=== PATIENT | female | born 1980 | race Two or more races ===

== ENCOUNTER 2019-09-27 12:17 | Emergency (ER) | payer OTHER ==
[2019-09-27] MEDS ORDERED: Sodium Chloride 0.9% 10 ML Syringe FLUSH PRN (12:31)
--- NOTE | 2019-09-27 12:59 | EDM.PDOC ---
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 Patient notes that her last menstrual period was August 11, she is a G1, P0 at this time. Patient did have a ultrasound done on Saturday, as she was having some left groin discomfort, and the ultrasound was done to rule out an ectopic . 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 They were unable to get a heartbeat at that visit. Patient complains of continued pain into her left groin, also with vaginal bleeding that started last night, and has continued today. Patient notes that this is present only when she wipes when she goes to the bathroom, she did wear a pad and there is been nothing present on the pad. Her OB is Dr. Saenz. Patient states that she feels generally bloated, and is having pain on her left lower quadrant. She denies any urinary issues like dysuria or frequency urgency. She notes that her last bowel movement was yesterday, and she does not feel overly full. She also denies any other sick-like symptoms, no fever no chills, no chest pain no shortness of breath. Patient did not take anything at home for the pain. 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 Denies: Constipation, Diarrhea, Nausea, Vomiting : Reports: Other (light vaginal bleeding). Denies: Dysuria, Flank Pain, Frequency, Urgency Musculoskeletal: Reports: Back Pain (Left lower back pain) ED EXAM - Physical Exam Exam: See Below Exam Limited By: No Limitations General Appearance: Alert, WD/WN, No Apparent Distress Respiratory/Chest: No Respiratory Distress, Lungs Clear, Normal Breath Sounds, No Accessory Muscle Use, Chest Non-Tender Cardiovascular: Normal Peripheral Pulses, Regular Rate, Rhythm, No Murmur GI/Abdominal Exam: Normal Bowel Sounds, Soft, Non-Tender, No Distention, No Mass (Female) Exam: Normal Bimanual Exam, Normal External Exam, Normal Speculum Exam, Vaginal Bleeding (scant amount of red tinged fluid). No: Cervical Dilatation, Cervical Discharge, Cervix Motion Tenderness, Tissue Present in Cervix/Vagina Heart Tones: Not [place] Movement: Not Appreciated Extremities: Normal Inspection, Normal Capillary Refill Neurological: Alert, Oriented, Normal Cognition, No Motor/Sensory Deficits Psychiatric: Normal Affect, Normal Mood Skin Exam: Warm, Dry, Intact, Normal Color, No Rash Course - Vital Signs Last Recorded V/S: Last Vital Signs Temp 98.3 F 09/27/19 12:36 Pulse 115 H 09/27/19 12:36 Resp 20 09/27/19 12:36 BP 115/78 09/27/19 12:36 Pulse Ox 100 09/27/19 12:36 - Orders/Labs/Meds Orders: Active Orders 24 hr Category Date Time Status Peripheral IV Care [RC] . DIRECTED Care 09/27/19 12:32 Inactive PATIENT RETYPE [BBK] Routine Lab 09/27/19 13:56 Ordered Peripheral IV Insertion Adult [OM.PC] Stat Oth 09/27/19 12:32 Ordered Labs: Laboratory Tests 09/27/19 09/27/19 09/27/19 Range/Units 13:30 13:30 13:30 WBC 9.10 (3.98-10.04) K/mm3 RBC 4.53 (3.98-5.22) M/mm3 Hgb 11.8 (11.2-15.7) gm/dl Hct 36.9 (34.1-44.9) % MCV 81.5 (79.4-94.8) fl MCH 26.0 (25.6-32.2) pg MCHC 32.0 L (32.2-35.5) g/dl RDW Std Deviation 42.0 (36.4-46.3) fL Plt Count 342 (182-369) K/mm3 MPV 9.5 (9.4-12.3) fl Neut % (Auto) 63.1 (34.0-71.1) % Lymph % (Auto) 28.8 (19.3-51.7) % Ralls % (Auto) 7.1 (4.7-12.5) % Eos % (Auto) 0.7 (0.7-5.8) Baso % (Auto) 0.2 (0.1-1.2) % Neut # (Auto) 5.74 (1.56-6.13) K/mm3 Lymph # (Auto) 2.62 (1.18-3.74) K/mm3 Ralls # (Auto) 0.65 H (0.24-0.36) K/mm3 Eos # (Auto) 0.06 (0.04-0.36) K/mm3 Baso # (Auto) 0.02 (0.01-0.08) K/mm3 HCG, Quant 60914.0 mIU/mL Blood Type A POSITIVE Meds: Medications Discontinued Medications Generic Name Dose Route Start Last Admin Trade Name Freq PRN Reason Stop Dose Admin Sodium Chloride 10 ml 09/27/19 12:31 Saline Flush FLUSH ASDIRECTED PRN Keep Vein Open - Re-Assessments/Exams Free Text/Narrative Re-Assessment/Exam: 09/27/19 13:42 Patient presents to the ED for evaluation of vaginal bleeding and . Will order a ultrasound for evaluation of the , hCG level, CBC and blood type, hCG will be compared to lab value 2 days ago to make sure that we have doubled at least. 09/27/19 14:27 hCG is still pending but all other labs are unremarkable at this time. Patient' s blood type is A+. Ultrasound is also done and demonstrates a intrauterine , with a gestational age of 6 weeks 1 day, heart rate is around 91 bpm. There is a large uterine fibroid noted at 10.8 x 8.1 x 8.1 cm. There was no obvious etiology for the patient's bleeding identified today, as there is no subchorionic hemorrhage. Still waiting on the hCG, however. 09/27/19 14:50 hCG has resulted and is 18,911, on 09/25/2019 it was 18,422. I did call her OB/ BOOK PACKER, Dr. Saenz even though he is not consultants intern to make him aware of what was going on. He states that she should be given reassurance, and have her call the clinic at 8 AM tomorrow and she will be started on progesterone suppositories. I will relay this information to the patient, and have her follow-up with Dr. Saenz tomorrow. Departure - Departure Time of Disposition: 14:51 Disposition: Home, Self-Care 01 Condition: Fair Clinical Impression: Vaginal bleeding affecting early , Uterine fibroid in - Discharge Information *PRESCRIPTION DRUG MONITORING PROGRAM REVIEWED*: No *COPY OF PRESCRIPTION DRUG MONITORING REPORT IN PATIENT MARTHA: No Instructions: Uterine Fibroids, [id number], Vaginal Bleeding During , First Trimester, [id number] Referrals: Segun Saenz MD [Primary Care Provider] - Forms: ED Department Discharge Additional Instructions: You were evaluated in the ER today regarding your abdominal pain/vaginal bleeding in . You did have some labs drawn, and these were within normal limits, your hCG level was 18,911 , your blood type is A+. Your ultrasound demonstrated an intrauterine gestation with a heart rate of 91 bpm. The fetus measured at around 6 weeks 1 day. Again you did have a large uterine fibroid, that measured 10.8 x 8.1 x 8.1 cm. Recommend that you do not lift anything heavier than a gallon of milk (5 lbs), do not engage in sexual activities, try to get as much pelvic rest as possible for the next few days. Please try not to exert yourself, rest and relax, and take it easy. If you are bleeding through more than 1-2 maxi pads every couple hours, this would be cause for concern to return to the ER for immediate management. I did discuss the findings with your MOVIE EDITOR, Dr. Saenz, and he would like you to call his clinic tomorrow morning at 8 AM, so that he can start you on progesterone suppositories for continuation of your . Please return to the ED at any time if your symptoms change or worsen. Sepsis Event Note - Evaluation Sepsis Screening Result: No Definite Risk - Focused Exam Vital Signs: Vital Signs Temp Pulse Resp BP Pulse Ox 09/27/19 12:36 98.3 F 115 H 20 115/78 100 Date Exam was Performed: 09/27/19 Time Exam was Performed: 14:49 - My Orders Last 24 Hours: My Active Orders 09/27/19 12:32 Peripheral IV Care [RC] . DIRECTED Peripheral IV Insertion Adult [OM.PC] Stat 09/27/19 13:56 PATIENT RETYPE [BBK] Routine - Assessment/Plan Last 24 Hours: My Active Orders 09/27/19 12:32 Peripheral IV Care [RC] . DIRECTED Peripheral IV Insertion Adult [OM.PC] Stat 09/27/19 13:56 PATIENT RETYPE [BBK] Routine
--- NOTE | 2019-09-27 13:43 | US ---
1st trimester obstetrical ultrasound: Multiple real-time images were obtained transvaginally and transabdominally. Dates: LMP: LMP given as 08/11/19, ALBERTO 05/17/20, gestational age 6 weeks 5 days Current ultrasound: 05/21/20, gestational age 6 weeks 1 day Single intrauterine gestation is seen. Small pole is noted. Amniotic fluid volume is felt to be within normal limits. No subchorionic hemorrhage is identified. Large uterine fibroid is seen measuring 10.8 x 8.1 x 8.1 cm. Maternal ovaries are felt to be within normal limits. Measurements: Oval-rump length: 0.42 cm - 6 weeks 1 day Heart rate: 91 bpm Impression: 1. Single intrauterine gestation. Dates as noted above. 2. Large uterine fibroid as noted above. 3. Nothing is seen to indicate an etiology for the patient's bleeding. Diagnostic code #3 This report was dictated in [place] Standard Time
== END 2019-09-27 15:03 | disposition home or self-care (01) ==
LOC: JD.ED 12:17
DX: O20.9 Hemorrhage in early pregnancy, unspecified (principal); O34.11 Maternal care for benign tumor of corpus uteri, first trimester; D25.9 Leiomyoma of uterus, unspecified; O99.331 Smoking (tobacco) complicating pregnancy, first trimester; F17.210 Nicotine dependence, cigarettes, uncomplicated; Z88.2 Allergy status to sulfonamides; Z3A.01 Less than 8 weeks gestation of pregnancy
CPT/HCPCS: 36415; 76817; 76817-26; 84702; 85025; 86900; 86901; 99283; 99284-25

== ENCOUNTER 2019-10-11 22:21 | Emergency (ER) | payer OTHER ==
[2019-10-11] MEDS ORDERED: Dextrose 5%-0.9% NaCl 1,000 ML IV SCH (23:00)
--- NOTE | 2019-10-11 23:35 | EDM.PDOC ---
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 Patient has been spotting for the last 2-1/2 weeks. She is also been experiencing left lower inguinal groin pain. She did have an ultrasound performed on September 25 due to the left lower quadrant abdominal pain to rule out an ectopic and no ectopic was identified. A small internal sac was noted in true uterine. Subsequently she developed spotting and presented to the ED for evaluation on September 27. Repeat ultrasound showed a small pole with a single intrauterine gestation with no subchorionic hemorrhage identified. There was a large uterine fibroid identified measuring 10.8 x 8.1 x 8 .1 m felt to be causing some of her pain. The fetus was identified by crown-rump length to be 6 weeks and 1 day. Her menstrual. Was listed as 11 August and EDC has been set at 17 May 2020. Be based on her dates. Ultrasound would have suggested a due date of May 20. She per reports she went to bed and at about 5 hrs. awoke to a gush of fluid per vagina and appreciated a large maroon-colored clot. Since that time she has been bleeding bright red blood per vagina fairly heavily since. She believes she has soaked 1 pad. Has a vague pulling sensation in her central suprapubic area but no terrible cramps in her abdomen or back. Patient's progesterone level was felt to be low and she is on progesterone suppository which he uses nightly. Her flexboard operator is Dr. Saenz Onset: Today Onset Date: 10/11/19 Onset Time: 21:45 (With a feeling of fluid running between her legs which proved to be blood. When she went to the washroom and there was a large clot that was expelled per vagina. She states this is the most bleeding she is experienced in the ) Duration: Hour(s):, Constant Location: Reports: Other (Bright red bleeding per vagina in ) Quality: Reports: Other (Pulling sensation ) Severity: Mild (prepubic abdomen.) Improves with: Reports: None Worsens with: Reports: None Context: Reports: Other (Taiwo is occurrence). 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 Denies: Fever, Chills HEENT: Reports: No Symptoms Respiratory: Reports: No Symptoms Cardiovascular: Reports: No Symptoms Endocrine: Reports: Fatigue GI/Abdominal: Reports: Abdominal Pain : Reports: Frequency, Other (Heavy bleeding per vagina with 1 large clot the size of a silver dollar past about 2145 hrs. tonight.) Musculoskeletal: Reports: No Symptoms Skin: Reports: No Symptoms Neurological: Reports: No Symptoms Psychiatric: Reports: Anxiety Hematologic/Lymphatic: Reports: No Symptoms Immunologic: Reports: No Symptoms ED EXAM - Physical Exam Exam: See Below Exam Limited By: No Limitations General Appearance: Alert, WD/WN, Anxious, Other (Appropriately anxious. Vital signs show temperature 36.7 with a heart rate of 88 in sinus respiratory is 18 BP was 129/85 with O2 sats of 100% on room air) Eye Exam: Bilateral Eye: Normal Inspection Throat/Mouth: Normal Inspection, Normal Lips, Normal Oropharynx Neck: Normal Inspection, Supple, Non-Tender, Full Range of Motion. No: Lymphadenopathy (L), Lymphadenopathy (R) Respiratory/Chest: No Respiratory Distress, Lungs Clear, Normal Breath Sounds, No Accessory Muscle Use Cardiovascular: Normal Peripheral Pulses, Regular Rate, Rhythm, No Edema, No Gallop, No JVD, No Murmur, No Rub GI/Abdominal Exam: Normal Bowel Sounds, Soft, Non-Tender, No Organomegaly, No Abnormal Bruit, No Mass, Pelvis Stable, Other (No gravid uterus is palpable.) (Female) Exam: Other (Cervix is high and anterior. Uterus is retroverted. Cervix appears to be closed but was difficult to reach. The uterus appears to be 8 weeks in size.) Heart Tones: Not [place] Movement: Not Appreciated Back Exam: Normal Inspection, Full Range of Motion. No: CVA Tenderness (L), CVA Tenderness (R) Extremities: Normal Inspection, Normal Range of Motion, Non-Tender Neurological: Alert, Oriented, CN II-XII Intact, Normal Cognition Psychiatric: Normal Affect, Anxious Skin Exam: Warm, Dry, Intact, Normal Color, No Rash Course - Vital Signs Last Recorded V/S: Last Vital Signs Temp 36.7 C 10/11/19 22:52 Pulse 88 10/11/19 22:52 Resp 18 10/11/19 22:52 BP 129/85 10/11/19 22:52 Pulse Ox 100 10/11/19 22:52 - Orders/Labs/Meds Orders: Active Orders 24 hr Category Date Time Status OB Transvaginal [US] Stat Exams 10/11/19 23:34 Ordered URINALYSIS W/MICROSCOPIC [UA W/MICROSCOPIC] [URIN] Stat Lab 10/12/19 00:24 Ordered Acetaminophen [Tylenol] Med 10/12/19 01:18 Once 975 mg PO NOW ONE Dextrose 5%-0.9% NaCl [Dextrose 5%-Normal Saline] 1,000 Med 10/11/19 23:00 Active ml IV ASDIRECTED Ketorolac [Toradol] Med 10/12/19 01:30 Ordered 30 mg IVPUSH ONETIME Medication Orders Dextrose/Sodium Chloride (Dextrose 5%-Normal Saline) 1,000 mls @ 150 mls/hr IV ASDIRECTED HERMANN Last Admin: 10/11/19 23:04 Dose: 150 mls/hr Labs: Laboratory Tests 10/11/19 10/11/19 Range/Units 23:00 23:00 WBC 10.85 H (3.98-10.04) K/mm3 RBC 4.56 (3.98-5.22) M/mm3 Hgb 12.1 (11.2-15.7) gm/dl Hct 37.2 (34.1-44.9) % MCV 81.6 (79.4-94.8) fl MCH 26.5 (25.6-32.2) pg MCHC 32.5 (32.2-35.5) g/dl RDW Std Deviation 44.1 (36.4-46.3) fL Plt Count 347 (182-369) K/mm3 MPV 9.6 (9.4-12.3) fl Neut % (Auto) 47.2 (34.0-71.1) % Lymph % (Auto) 43.7 (19.3-51.7) % [place] % (Auto) 7.4 (4.7-12.5) % Eos % (Auto) 1.2 (0.7-5.8) Baso % (Auto) 0.3 (0.1-1.2) % Neut # (Auto) 5.13 (1.56-6.13) K/mm3 Lymph # (Auto) 4.74 H (1.18-3.74) K/mm3 [place] # (Auto) 0.80 H (0.24-0.36) K/mm3 Eos # (Auto) 0.13 (0.04-0.36) K/mm3 Baso # (Auto) 0.03 (0.01-0.08) K/mm3 Manual Slide Review Normal smear Sodium 137 (136-145) mEq/L Potassium 3.8 (3.5-5.1) mEq/L Chloride 105 (98-107) mEq/L Carbon Dioxide 22 (21-32) mEq/L Anion Gap 13.8 (5-15) BUN 12 (7-18) mg/dL Creatinine 0.8 (0.55-1.02) mg/dL Est Cr Clr Drug Dosing 98.67 mL/min Estimated GFR (MDRD) > 60 (>60) mL/min BUN/Creatinine Ratio 15.0 (14-18) Glucose 101 (74-106) mg/dL Calcium 9.1 (8.5-10.1) mg/dL Total Bilirubin 0.5 (0.2-1.0) mg/dL AST 17 (15-37) U/L ALT 31 (14-59) U/L Alkaline Phosphatase 61 (46-116) U/L Total Protein 6.6 (6.4-8.2) g/dl Albumin 3.3 L (3.4-5.0) g/dl Globulin 3.3 gm/dL Albumin/Globulin Ratio 1.0 (1-2) HCG, Quant 51506.0 mIU/mL Meds: Medications Generic Name Dose Route Start Last Admin Trade Name Freq PRN Reason Stop Dose Admin Dextrose/Sodium Chloride 1,000 mls @ 150 mls/hr 10/11/19 23:00 10/11/19 23:04 Dextrose 5%-Normal Saline IV 150 mls/hr ASDIRECTED HERMANN Administration Discontinued Medications Generic Name Dose Route Start Last Admin Trade Name Freq PRN Reason Stop Dose Admin Acetaminophen 975 mg 10/12/19 01:07 Tylenol PO 10/12/19 01:08 NOW ONE Ketorolac Tromethamine 30 mg 10/12/19 01:16 Toradol IVPUSH 10/12/19 01:17 ONETIME STA - Radiology Interpretation Free Text/Narrative:: 39-year-old female presents to the ED evaluation of bright red bleeding per vagina with much heavier than what she is experienced for the last 2 weeks. She has been spotting on a daily basis for the last 2 weeks. Last ultrasound was done September 27 which showed a small pole and an early heartbeat. A single intrauterine gestation was evident. Estimated date of was 6 weeks and 1 day. States her last known menstrual period was around 11 August 2019. 1 para 0. Lab work done 2 weeks ago revealed that she is blood type A positive. She will have a quantitative beta hCG done with routine labs. She will have a transvaginal ultrasound to prove viability. - Re-Assessments/Exams Free Text/Narrative Re-Assessment/Exam: 10/12/19 00:33 White blood cell count is 10.85 with a normal differential of 47.2% neutrophils. Hemoglobin is 12.1 with a hematocrit of 37.2. Platelet count is normal at 347,000. Sodium is 137 with a potassium of 3.8. Chloride is 105 with a bicarb of 22. Anion gap is 13.8. BUN is 12 with a creatinine of 0.8. Estimated GFR is 60. Glucose is 101. Calcium is 9.1. Liver function is normal. Total protein is 6.6 with a albumin fraction slightly low at 3.3. Current quantitative beta-hCG is 27,014 .This correlates with a 68-week gestation. Wherever hCG was 18,911 on September 27. 10/12/19 01:18 Trans vaginal ultrasound has been completed. It reveals the crown-rump length to have not changed over the last 2 weeks it is still 6.1 mm. There is no heartbeat at this time indicating that the has failed. And and were advised of this. Of note blood type is A positive and she does not need RhoGam. He was advised that she is going to have a very heavy period for the next 3 days. She is to return to the ED or Dr. Saenz's office if she is bleeding heavy enough to soak a pad per hour for 2 consecutive hours. She has a headache at present I am going to give her 975 mg of Tylenol p.o. and Toradol 30 mg IV. Going to send her home with Percocet tabs x2 of the 5/325 mg strength to be taken if needed for further relief if pain not controlled by Motrin alone. To follow-up with Dr. Saenz in a week and in 3 weeks time for beta-hCG assessments. Discussed with her whether or not a decision will have to be made about myomectomy as to whether or not Dr. Saenz feels this is contributing to loss. Departure - Departure Time of Disposition: 01:20 Disposition: Home, Self-Care 01 Condition: Fair Clinical Impression: Incomplete miscarriage with blood clot - Discharge Information *PRESCRIPTION DRUG MONITORING PROGRAM REVIEWED*: Not Applicable *COPY OF PRESCRIPTION DRUG MONITORING REPORT IN PATIENT MARTHA: Not Applicable Prescriptions: oxyCODONE HCl/Acetaminophen [Percocet 5-325 mg Tablet] 1 - 2 each PO Q4H PRN # 10 tablet PRN Reason: pain relief. Referrals: Segun Saenz MD [Primary Care Provider] - Forms: ED Department Discharge Additional Instructions: Evaluation in the emergency room tonight in regards to much heavier bleeding per vagina than what you have experienced in the past few weeks during first trimester of . Previous ultrasound done on September 27 revealed a gestational sac with a crown-rump length of 6.1 mm and a heartbeat. Fortunately today's ultrasound reveals that there is no heartbeat and the crown-rump length has not changed since last ultrasound indicating demise or failure. The cause of failure is unclear but often is genetic in cause. This means mother nature felt that there was something terribly wrong with the development of the fetus and decided to growth and let a miscarriage occur. Your case there is a compounding factor with a very large leiomyoma which is a muscle tumor of the uterus that may be a factor in causing miscarriage. He will have to discuss this further with Dr. Saenz. At present you were likely to experience a much heavier period than normal. This will go on for about 5 to 6 days. You would need to return to medical care if you soak a pad per hour for 2 consecutive hours. As this indicates fairly heavy bleeding and possible need for D&C. Is a surgical procedure to remove the products of conception from the inside of the uterus. Suggest follow -up with Dr. Saenz in 1 week's time and in 3 weeks time for beta-hCG assessment. Use Motrin 600 mg every 6 hours as needed to reduce cramping and pain. If not controlled with Motrin alone may use Percocet tablets 1 or 2 5/ 325 mg strength tabs every 4-6 hours for pain relief as well. Sepsis Event Note - Evaluation Sepsis Screening Result: No Definite Risk - Focused Exam Vital Signs: Vital Signs Temp Pulse Resp BP Pulse Ox 10/11/19 22:52 36.7 C 88 18 129/85 100 Date Exam was Performed: 10/12/19 Time Exam was Performed: 01:18 - My Orders Last 24 Hours: My Active Orders 10/11/19 23:00 Dextrose 5%-0.9% NaCl [Dextrose 5%-Normal Saline] 1,000 ml IV ASDIRECTED 10/11/19 23:34 OB Transvaginal [US] Stat 10/12/19 00:24 URINALYSIS W/MICROSCOPIC [UA W/MICROSCOPIC] [URIN] Stat 10/12/19 01:18 Acetaminophen [Tylenol] 975 mg PO NOW ONE 10/12/19 01:30 Ketorolac [Toradol] 30 mg IVPUSH ONETIME - Assessment/Plan Last 24 Hours: My Active Orders 02/23/20 23:00 Dextrose 5%-0.9% NaCl [Dextrose 5%-Normal Saline] 1,000 ml IV ASDIRECTED 10/11/19 23:34 OB Transvaginal [US] Stat 10/12/19 00:24 URINALYSIS W/MICROSCOPIC [UA W/MICROSCOPIC] [URIN] Stat 10/12/19 01:18 Acetaminophen [Tylenol] 975 mg PO NOW ONE 10/12/19 01:30 Ketorolac [Toradol] 30 mg IVPUSH ONETIME
[2019-10-12] MEDS ORDERED: Acetaminophen 325 MG Tab PO ONE ×2 (01:07→01:18)
[2019-10-12] MEDS ORDERED: Ketorolac 30 MG/ML SDV IVPUSH STA (01:16)
[2019-10-12] MEDS ORDERED: Acetaminophen/oxyCODONE 325-5 MG Tab PO ONE (01:21)
[2019-10-12] MEDS ORDERED: Ketorolac 30 MG/ML SDV IVPUSH SCH (01:30)
--- NOTE | 2019-10-12 06:55 | US ---
First trimester obstetrical ultrasound: Multiple real-time images were obtained transabdominally and transvaginally. Comparison: Prior first trimester obstetrical ultrasound 09/27/19. Dates: LMP: LMP given as 08/11/19, ALBERTO 05/17/20, gestational age 8 weeks 6 days Current ultrasound: ALBERTO 06/05/20, gestational age 6 weeks 1 day Single intrauterine gestation is seen. pole is seen. No heart activity seen at this time. Amniotic fluid volume is normal. Simple cyst is noted within the maternal left ovary measuring 3.5 cm most likely representing corpus luteum cyst. Right ovary is unremarkable. Small subchorionic hemorrhage is noted. Measurements: Trainer-rump length: 0.4 cm - 6 weeks 1 day Impression: 1. Single intrauterine gestation. Dates as noted above. 2. No heart activity is seen. This may relate to early gestational age. Follow-up study could be considered in 11 days to further evaluate. 3. Small subchorionic hemorrhage. 4. 3.5 cm corpus luteum cyst within the maternal left ovary. Diagnostic code #3 This report was dictated in [place] Standard Time I agree with preliminary report from [facility], finalized on 10/12/19, 2:58 AM Central Time
== END 2019-10-12 01:30 | disposition home or self-care (01) ==
LOC: JD.ED 22:21
DX: O03.4 Incomplete spontaneous abortion without complication (principal); Z88.2 Allergy status to sulfonamides
CPT/HCPCS: 36415; 76817; 80053; 84702; 85025; 96361; 96374; 99284; A9270; J1885; J7042; 99283

== ENCOUNTER 2019-10-15 10:27 | Emergency (ER) | payer OTHER ==
[2019-10-15] MEDS ORDERED: Sodium Chloride 0.9% 10 ML Syringe FLUSH PRN (11:26)
[2019-10-15] MEDS ORDERED: Ondansetron 4 MG/2 ML SDV IVPUSH ONE (11:43)
[2019-10-15] MEDS ORDERED: HYDROmorphone 0.5 MG/0.5 ML Syringe IVPUSH ONE (11:43)
--- NOTE | 2019-10-15 11:55 | EDM.PDOC ---
ED HPI GENERAL MEDICAL PROBLEM - General Source of Information: Reports: Patient History Limitations: Reports: No Limitations Left Lower Abdominal Pain Score (Numeric/FACES): 7 <Elba Romero - Last Filed: 10/15/19 11:43> <Samira Allan - Last Filed: 10/15/19 23:28> - General Chief Complaint: HALF SOLE FITTER Problem Stated Complaint: HEAVY BLEEDING Time Seen by Provider: 10/15/19 11:15 - History of Present Illness INITIAL COMMENTS - FREE TEXT/NARRATIVE: Patient is a pleasant 39-year-old female who presents to the ED with complaints of heavy bleeding that started this morning at 0230. Patient was evaluated in the ED on 10/11/2019 and was told she was having a miscarriage and was provided a prescription for Oxycodone and was provided instructions on what to expect. She states the amount of bleeding was following what Dr. Hardy had told her on Saturday until this morning when she started having stronger abdominal cramping and passing clots. On Saturday she was having to change her pad every four hours and was just having bright red blood, no clots. Saturday she states she really didn't have much bleeding. Saturday she had to change her pad every four hours, but again was not passing clots, just having bright red blood. Then today, , at 0230 she woke up from pain and noticed she was passing quarter size dark maroon clots and bright red blood. She took one of the Oxycodone tablets and went back to sleep. When she woke up at 0830 she started having more cramping in the left lower quadrant and is still passing clots. She has had to change her pad every 90 minutes since she woke up. She is no longer having back pain. She states that with the left lower quadrant cramping, "it feels like there is a band inside that keeps getting pulled." She denies chest pain, shortness of breath, and fever/chills. Of note, her OB is Dr. Saenz. She has had one appointment with him during the , which was on 09/24/2019. At the appointment he started her on Progesterone. Two days after she started having bleeding and has been having issues with bleeding since. This is her third evaluation in the ED, the first being on 09/27/2019, second on 10/11/2019, and today. 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 Denies: Fever, Chills, Weakness Respiratory: Reports: No Symptoms. Denies: Shortness of Breath Cardiovascular: Reports: No Symptoms. Denies: Chest Pain, Lightheadedness, Syncope GI/Abdominal: Reports: Abdominal Pain (cramping in left lower quadrant). Denies : Diarrhea, Nausea, Vomiting : Reports: Discharge (bright red blood and dark maroon quarter-size clots for the past 9 hours) Musculoskeletal: Reports: No Symptoms. Denies: Back Pain Skin: Reports: No Symptoms. Denies: Pallor, Rash, Erythema Neurological: Reports: No Symptoms. Denies: Dizziness, Headache, Numbness, Syncope, Tingling Psychiatric: Reports: No Symptoms <Elba Romero - Last Filed: 10/15/19 11:43> ED EXAM - Physical Exam Exam: See Below Exam Limited By: No Limitations General Appearance: Alert, WD/WN, No Apparent Distress Respiratory/Chest: No Respiratory Distress, Lungs Clear, Normal Breath Sounds, No Accessory Muscle Use, Chest Non-Tender Cardiovascular: Normal Peripheral Pulses, Regular Rate, Rhythm, No Edema, No Gallop, No Murmur, No Rub GI/Abdominal Exam: Normal Bowel Sounds, Soft, No Organomegaly, No Distention, No Mass, Pelvis Stable, Tender (left lower quadrant) Back Exam: Normal Inspection, Full Range of Motion, NT Extremities: Normal Inspection, Normal Range of Motion, Non-Tender, Normal Capillary Refill, No Pedal Edema Neurological: Alert, Oriented, Normal Cognition, Normal Gait, No Motor/Sensory Deficits Psychiatric: Normal Affect, Normal Mood, Tearful Skin Exam: Warm, Dry, Intact, Normal Color, No Rash <Elba Romero - Last Filed: 10/15/19 11:43> Course <Elba Romero - Last Filed: 10/15/19 11:43> <Samira Allan - Last Filed: 10/15/19 23:28> - Vital Signs Last Recorded V/S: Last Vital Signs Temp 99.2 F 10/15/19 12:33 Pulse 64 10/15/19 13:00 Resp 16 10/15/19 13:00 BP 94/61 10/15/19 13:00 Pulse Ox 96 10/15/19 13:00 - Orders/Labs/Meds Orders: Active Orders 24 hr Category Date Time Status Peripheral IV Care [RC] . DIRECTED Care 10/15/19 11:29 Active Peripheral IV Insertion Adult [OM.PC] Stat Oth 10/15/19 11:27 Ordered Labs: Laboratory Tests 10/15/19 10/15/19 10/15/19 Range/Units 11:45 11:45 11:45 WBC 9.45 (3.98-10.04) K/mm3 RBC 4.64 (3.98-5.22) M/mm3 Hgb 12.2 (11.2-15.7) gm/dl Hct 38.0 (34.1-44.9) % MCV 81.9 (79.4-94.8) fl MCH 26.3 (25.6-32.2) pg MCHC 32.1 L (32.2-35.5) g/dl RDW Std Deviation 44.2 (36.4-46.3) fL Plt Count 312 (182-369) K/mm3 MPV 9.4 (9.4-12.3) fl Neut % (Auto) 59.6 (34.0-71.1) % Lymph % (Auto) 32.1 (19.3-51.7) % Churchill % (Auto) 6.9 (4.7-12.5) % Eos % (Auto) 1.1 (0.7-5.8) Baso % (Auto) 0.2 (0.1-1.2) % Neut # (Auto) 5.64 (1.56-6.13) K/mm3 Lymph # (Auto) 3.03 (1.18-3.74) K/mm3 Churchill # (Auto) 0.65 H (0.24-0.36) K/mm3 Eos # (Auto) 0.10 (0.04-0.36) K/mm3 Baso # (Auto) 0.02 (0.01-0.08) K/mm3 HCG, Quant 23671.0 mIU/mL Blood Type A POSITIVE Gel Antibody Screen Negative Meds: Medications Discontinued Medications Generic Name Dose Route Start Last Admin Trade Name Freq PRN Reason Stop Dose Admin Hydromorphone HCl 0.5 mg 10/15/19 11:43 10/15/19 12:32 Dilaudid IVPUSH 10/15/19 11:44 0.5 mg ONETIME ONE Administration Sodium Chloride 1,000 mls @ 999 mls/hr 10/15/19 13:47 10/15/19 14:30 Normal Saline IV 10/15/19 14:47 999 mls/hr ONETIME ONE Administration Ondansetron HCl 4 mg 10/15/19 11:43 10/15/19 12:30 Zofran IVPUSH 10/15/19 11:44 4 mg ONETIME ONE Administration Sodium Chloride 10 ml 10/15/19 11:26 10/15/19 12:34 Saline Flush FLUSH 10 ml ASDIRECTED PRN Administration Keep Vein Open - Re-Assessments/Exams Free Text/Narrative Re-Assessment/Exam: 10/15/19 11:51 I have read and reviewed the student's HPI and examined the patient and agree with 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 We will repeat the ultrasound today to make sure she has no retained products of conception. And some labs to include CBC, hCG and a type and screen IV will be placed as well. 10/15/19 13:52 Ultrasound is back and demonstrates no intrauterine gestational sac, with a mild amount of debris within the endometrial cavity presumably due to blood clot. This will likely pass on its own, I do believe the patient is through the worst of the miscarriage at this time. I did call Dr. Saenz to make him aware and he also agrees. Review of the patient's blood pressures have revealed that her systolic pressures been in the 90s to low 100s. Patient's not complaining of any dizziness, however due to her vaginal bleeding I will give her a bag of fluids at today's visit before leaving. And the patient will get a work note to have the rest of the weekend off so she may recover. (Samira Allan) Departure <Elba Romero - Last Filed: 10/15/19 11:43> - Departure Time of Disposition: 13:53 Condition: Fair - Discharge Information *PRESCRIPTION DRUG MONITORING PROGRAM REVIEWED*: No *COPY OF PRESCRIPTION DRUG MONITORING REPORT IN PATIENT MARTHA: No <Samira Allan - Last Filed: 10/15/19 23:28> - Departure Disposition: Home, Self-Care 01 Clinical Impression: Complete - Discharge Information Instructions: Miscarriage, [id number] Referrals: Segun Saenz MD [Primary Care Provider] - Forms: ED Department Discharge, ED Return to Work/School Form Additional Instructions: You were evaluated in the ER today regarding your abdominal pain/vaginal bleeding in . You did have some labs drawn, and these were within normal limits. Your ultrasound demonstrated no intrauterine gestational sac, but a mild amount of debris which is likely still blood clot, you should pass this with little to no difficulty. You might have some heavier vaginal bleeding over the next day or 2 while the body is still trying to recuperate itself from the miscarriage. Please try not to exert yourself over the next couple days try to rest/relax, and take it easy. Highly recommend you eat some meals high in iron, like red meats, steak, green leafy vegetables, etc. Please try to keep yourself well- hydrated. If you are bleeding through more than 1-2 maxi pads every couple hours, or have any increasing dizziness or lightheadeness with standing, this would be cause for concern to return to the ER for immediate management. Please return to the ED at any time if your symptoms change or worsen. Sepsis Event Note - Evaluation Sepsis Screening Result: No Definite Risk - Focused Exam Date Exam was Performed: 10/15/19 Time Exam was Performed: 11:43 <Elba Romero - Last Filed: 10/15/19 11:43> - Focused Exam Date Exam was Performed: 10/15/19 Time Exam was Performed: 23:28 <Samira Allan - Last Filed: 10/15/19 23:28> - Focused Exam Vital Signs: Vital Signs Temp Pulse Resp BP Pulse Ox 10/15/19 13:00 64 16 94/61 96 10/15/19 12:33 99.2 F 64 16 106/67 97 - My Orders Last 24 Hours: My Active Orders 10/15/19 11:27 Peripheral IV Insertion Adult [OM.PC] Stat 10/15/19 11:29 Peripheral IV Care [RC] . DIRECTED - Assessment/Plan Last 24 Hours: My Active Orders 10/15/19 11:27 Peripheral IV Insertion Adult [OM.PC] Stat 10/15/19 11:29 Peripheral IV Care [RC] . DIRECTED
--- NOTE | 2019-10-15 13:35 | US ---
First trimester obstetrical ultrasound: Multiple real-time images were obtained transabdominally. Comparison: Previous study of 10/11/19. Findings: No intrauterine gestational sac is seen. Endometrial thickness is about 1.5 cm containing some debris which is presumably due to blood clot. Large fibroid is noted measuring up to 9.9 cm. Right ovary not visualized, left ovary is normal in size. Impression: 1. No intrauterine gestational sac. Mild amount of debris within the endometrial cavity presumably due to blood clot. 2. Large 9.9 cm fibroid. 3. Nonvisualized right ovary. Diagnostic code #3 This report was dictated in [place] Standard Time
[2019-10-15] MEDS ORDERED: Sodium Chloride 0.9% 1,000 ML IV ONE (13:47)
== END 2019-10-15 15:27 | disposition home or self-care (01) ==
LOC: JD.ED 10:27
DX: O03.9 Complete or unspecified spontaneous abortion without complication (principal); Z88.2 Allergy status to sulfonamides
CPT/HCPCS: 36415; 76817; 84702; 85025; 86850; 86900; 86901; 96361; 96374; 96375; 99284; J1170; J2405; J7030; 99283

== ENCOUNTER 2019-12-21 02:54 | Emergency (ER) | payer MEDICAID ==
[2019-12-21] MEDS ORDERED: Sodium Chloride 0.9% 1,000 ML IV SCH (03:15)
--- NOTE | 2019-12-21 03:18 | EDM.PDOC ---
ED HPI GENERAL MEDICAL PROBLEM - General Chief Complaint: Abdominal Pain Stated Complaint: abdominal pain Time Seen by Provider: 12/21/19 03:15 Source of Information: Reports: Patient History Limitations: Reports: No Limitations - History of Present Illness INITIAL COMMENTS - FREE TEXT/NARRATIVE: TRIAGE NOTE -- Pt states on she had a miscarriage then since she has been bleeding. Two weeks ago the bleeding stopped but pt was diagnosed with a fibroid and has been seeing Dr. Saenz for management. Today she states her pelvic pain has become much worse. [ End ] Above-noted. There is been no fever. No nausea or vomiting. Patient has been uncomfortable as noted. Pelvic pain related to a fibroid. To be discussed shortly. There is been no vaginal bleeding. No dysuria. No other symptom of acute medical illness. The patient has had her first recently which ended with spontaneous . She is being managed by gynecology. Large fibroid has been noted. She has not taken any medication or tried any other measure to moderate her symptoms prior to arrival. Only risk factor identified is the presence of the large fibroid. 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 ED EXAM, RENAL/ - Physical Exam Exam: See Below Exam Limited By: No Limitations General Appearance: Alert, WD/WN, No Apparent Distress Eye Exam: Bilateral Eye: EOMI, PERRL Ears: Normal External Exam Nose: Normal Inspection Throat/Mouth: Normal Inspection Head: Atraumatic, Normocephalic Neck: Supple, Non-Tender Respiratory/Chest: No Respiratory Distress, Lungs Clear, Normal Breath Sounds Cardiovascular: Regular Rate, Rhythm GI/Abdominal: Soft, Non-Tender. No: Guarding, Rigid, Rebound, Tender Back Exam: Normal Inspection Extremities: Normal Inspection, Non-Tender Neurological: Alert, Oriented, Normal Cognition, No Motor/Sensory Deficits Psychiatric: Normal Affect, Normal Mood Skin Exam: Warm, Dry Course - Vital Signs Last Recorded V/S: Last Vital Signs Temp 36.4 C 12/21/19 03:01 Pulse 71 12/21/19 03:01 Resp 16 12/21/19 03:01 BP 145/89 H 12/21/19 03:01 Pulse Ox 99 12/21/19 03:01 - Orders/Labs/Meds Orders: Active Orders 24 hr Category Date Time Status Sodium Chloride 0.9% [Normal Saline] 1,000 ml Med 12/21/19 03:15 Active IV ASDIRECTED Medication Orders Sodium Chloride (Normal Saline) 1,000 mls @ 150 mls/hr IV ASDIRECTED HERMANN Last Admin: 12/21/19 03:12 Dose: 150 mls/hr Labs: Laboratory Tests 12/21/19 12/21/19 12/21/19 Range/Units 03:00 03:00 03:00 WBC 9.24 (3.98-10.04) K/mm3 RBC 5.00 (3.98-5.22) M/mm3 Hgb 13.3 (11.2-15.7) gm/dl Hct 40.6 (34.1-44.9) % MCV 81.2 (79.4-94.8) fl MCH 26.6 (25.6-32.2) pg MCHC 32.8 (32.2-35.5) g/dl RDW Std Deviation 42.4 (36.4-46.3) fL Plt Count 329 (182-369) K/mm3 MPV 9.8 (9.4-12.3) fl Neutrophils % (Manual) 36 L (40-60) % Band Neutrophils % 0 (0-10) % Lymphocytes % (Manual) 54 H (20-40) % Atypical Lymphs % 0 % Monocytes % (Manual) 5 (2-10) % Eosinophils % (Manual) 3 (0.7-5.8) % Basophils % (Manual) 2 H (0.1-1.2) Platelet Estimate Adequate RBC Morph Comment Normal PT 10.5 (9.7-12.0) SECONDS INR 0.96 APTT 26 (22-31) SECONDS Sodium 137 (136-145) mEq/L Potassium 3.8 (3.5-5.1) mEq/L Chloride 105 (98-107) mEq/L Carbon Dioxide 24 (21-32) mEq/L Anion Gap 11.8 (5-15) BUN 7 (7-18) mg/dL Creatinine 0.9 (0.55-1.02) mg/dL Est Cr Clr Drug Dosing 87.70 mL/min Estimated GFR (MDRD) > 60 (>60) mL/min BUN/Creatinine Ratio 7.8 L (14-18) Glucose 89 (74-106) mg/dL Calcium 8.8 (8.5-10.1) mg/dL Total Bilirubin 0.9 (0.2-1.0) mg/dL AST 19 (15-37) U/L ALT 26 (14-59) U/L Alkaline Phosphatase 58 (46-116) U/L Total Protein 7.0 (6.4-8.2) g/dl Albumin 3.7 (3.4-5.0) g/dl Globulin 3.3 gm/dL Albumin/Globulin Ratio 1.1 (1-2) Lipase 154 (73-393) U/L Urine Color (Yellow) Urine Appearance (Clear) Urine pH (5.0-8.0) Ur Specific Anderson (1.005-1.030) Urine Protein (Negative) Urine Glucose (UA) (Negative) Urine Ketones (Negative) Urine Occult Blood (Negative) Urine Nitrite (Negative) Urine Bilirubin (Negative) Urine Urobilinogen (0.2-1.0) Ur Leukocyte Esterase (Negative) Urine RBC (0-5) /hpf Urine WBC (0-5) /hpf Ur Squamous Epith Cells (0-5) /hpf Urine Bacteria (FEW) /hpf Urine Mucus (FEW) /hpf Urine HCG, Qual (NEGATIVE) 12/21/19 12/21/19 Range/Units 04:00 04:00 WBC (3.98-10.04) K/mm3 RBC (3.98-5.22) M/mm3 Hgb (11.2-15.7) gm/dl Hct (34.1-44.9) % MCV (79.4-94.8) fl MCH (25.6-32.2) pg MCHC (32.2-35.5) g/dl RDW Std Deviation (36.4-46.3) fL Plt Count (182-369) K/mm3 MPV (9.4-12.3) fl Neutrophils % (Manual) (40-60) % Band Neutrophils % (0-10) % Lymphocytes % (Manual) (20-40) % Atypical Lymphs % % Monocytes % (Manual) (2-10) % Eosinophils % (Manual) (0.7-5.8) % Basophils % (Manual) (0.1-1.2) Platelet Estimate RBC Morph Comment PT (9.7-12.0) SECONDS INR APTT (22-31) SECONDS Sodium (136-145) mEq/L Potassium (3.5-5.1) mEq/L Chloride (98-107) mEq/L Carbon Dioxide (21-32) mEq/L Anion Gap (5-15) BUN (7-18) mg/dL Creatinine (0.55-1.02) mg/dL Est Cr Clr Drug Dosing mL/min Estimated GFR (MDRD) (>60) mL/min BUN/Creatinine Ratio (14-18) Glucose (74-106) mg/dL Calcium (8.5-10.1) mg/dL Total Bilirubin (0.2-1.0) mg/dL AST (15-37) U/L ALT (14-59) U/L Alkaline Phosphatase (46-116) U/L Total Protein (6.4-8.2) g/dl Albumin (3.4-5.0) g/dl Globulin gm/dL Albumin/Globulin Ratio (1-2) Lipase (73-393) U/L Urine Color Yellow (Yellow) Urine Appearance Clear (Clear) Urine pH 6.0 (5.0-8.0) Ur Specific Anderson 1.025 (1.005-1.030) Urine Protein Negative (Negative) Urine Glucose (UA) Negative (Negative) Urine Ketones 2+ H (Negative) Urine Occult Blood Trace-intact H (Negative) Urine Nitrite Negative (Negative) Urine Bilirubin Negative (Negative) Urine Urobilinogen 0.2 (0.2-1.0) Ur Leukocyte Esterase Negative (Negative) Urine RBC 0-5 (0-5) /hpf Urine WBC Not seen (0-5) /hpf Ur Squamous Epith Cells Not seen (0-5) /hpf Urine Bacteria Rare (FEW) /hpf Urine Mucus Few (FEW) /hpf Urine HCG, Qual Positive (NEGATIVE) Meds: Medications Generic Name Dose Route Start Last Admin Trade Name Freq PRN Reason Stop Dose Admin Sodium Chloride 1,000 mls @ 150 mls/hr 12/21/19 03:15 12/21/19 03:12 Normal Saline IV 150 mls/hr ASDIRECTED [facility] Administration - Re-Assessments/Exams Free Text/Narrative Re-Assessment/Exam: 12/21/19 04:37 A work-up was done without any salient abnormal findings. The urine test is positive but patient assures me there is no way this could represent a new since her spontaneous in September. Judging from the serum hCG tests as recently as a few days ago it is not surprising that the urine test is still positive. This was discussed with the patient. Her exam is benign and there is no additional evaluation that can be done in the ER that would benefit the patient. She has access to her computer technical support specialist and needs to give this specialist to call this morning and she agrees to do so. She is obviously having discomfort as a result of her fibroid. It would behoove her to get with her computer technical support specialist and come up with a plan that makes sense for her in this situation. Departure - Departure Time of Disposition: 04:40 Disposition: Home, Self-Care 01 Condition: Good Clinical Impression: Pelvic pain Uterine fibroid Qualifiers: Uterine leiomyoma location: unspecified location Qualified Code(s): D25.9 - Leiomyoma of uterus, unspecified - Discharge Information Referrals: Segun Saenz MD [Primary Care Provider] - Forms: ED Department Discharge Additional Instructions: You have been seen for your pelvic discomfort and pain. This is undoubtedly a result of your large fibroid. On our evaluation in the ER there is nothing more we can do for you today that might be of benefit to you. Please call your computer technical support specialist this morning and arrange to consult with him and come up with a plan that makes sense for you and management of this problem. Do not hesitate to return to the ER for any increased pain nausea vomiting fever or any discomfort that you cannot manage at home. Sepsis Event Note - Evaluation Sepsis Screening Result: No Definite Risk - Focused Exam Vital Signs: Vital Signs Temp Pulse Resp BP Pulse Ox 12/21/19 03:01 36.4 C 71 16 145/89 H 99 Date Exam was Performed: 12/21/19 Time Exam was Performed: 04:36 - My Orders Last 24 Hours: My Active Orders 12/21/19 03:15 Sodium Chloride 0.9% [Normal Saline] 1,000 ml IV ASDIRECTED - Assessment/Plan Last 24 Hours: My Active Orders 12/21/19 03:15 Sodium Chloride 0.9% [Normal Saline] 1,000 ml IV ASDIRECTED
== END 2019-12-21 04:55 | disposition home or self-care (01) ==
LOC: JD.ED 02:54
DX: O34.11 Maternal care for benign tumor of corpus uteri, first trimester (principal); Z88.2 Allergy status to sulfonamides
CPT/HCPCS: 36415; 80053; 81001; 81025; 83690; 84702; 85007; 85027; 85610; 85730; 99284; J7030; 99283

== ENCOUNTER 2019-12-22 07:19 | Day surgery (SDC) | payer MEDICAID, OTHER ==
--- NOTE | 2019-12-22 07:59 | PCM.PREANE ---
Preanesthetic Assessment - Anesthesia/Transfusion/Family Hx Anesthesia History: Prior Anesthesia Without Reaction Type of Anesthesia Reaction: Other (see below) (emotional on wake up) Family History of Anesthesia Reaction: No Transfusion History: No Prior Transfusion(s) Intubation History: Unknown - Review of Systems General: No Symptoms, Fatigue Pulmonary: No Symptoms (Former smoker: just vaping socially. none since August. ) Cardiovascular: No Symptoms Gastrointestinal: No Symptoms (History of GERD. (diet related)), Abdominal Pain , Decreased Appetite, Diarrhea Neurological: No Symptoms Other: Reports: None (History of kidney stones), Easy Bruising - Physical Assessment NPO Status Date: 12/22/19 NPO Status Time: 05:30 Vital Signs: HR: BP: Sat: Temp: Resp: Height: 1.75 m Weight: 99 kg ASA Class: 2 Mental Status: Alert & Oriented x3 Airway Class: Mallampati = 2 Dentition: Reports: Normal Dentition, Caries Thyro-Mental Finger Breadths: 3 Mouth Opening Finger Breadths: 3 ROM/Head Extension: Full Lungs: Clear to Auscultation, Normal Respiratory Effort Cardiovascular: Regular Rate, Regular Rhythm, No Murmurs - Lab Values: HCG: positive/ decreased serum titers. Unable to rule out ectopic . 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 - Past Surgical History HEENT Surgical History: Reports: Tonsillectomy GI Surgical History: Reports: Appendectomy, Cholecystectomy - HOME MEDS Home Medications: Home Meds oxyCODONE HCl/Acetaminophen [Percocet 5-325 mg Tablet] 1 - 2 each PO Q4H PRN # 10 tablet 10/12/19 [Rx] - CURRENT (IN HOUSE) MEDS Current Meds: Current Medications Lactated Ringer's (Ringers, Lactated) 1,000 mls @ 125 mls/hr IV ASDIRECTED HERMANN Stop: 12/23/19 23:00 Lidocaine/Sodium Bicarbonate (Buffered Lidocaine 1% In Ns 8.4%) 0.25 ml IDERM ONETIME PRN PRN Reason: Prior to IV Start Stop: 12/23/19 18:00 Sodium Chloride (Saline Flush) 10 ml FLUSH ASDIRECTED PRN PRN Reason: Keep Vein Open Stop: 12/23/19 18:00
[2019-12-22] MEDS ORDERED: Lidocaine 1%/Sod Bicarbonate in NS 8.4% 1 ML Syringe IDERM PRN (08:14)
[2019-12-22] MEDS: Lactated Ringers 1,000 ML IV SCH ×2 (08:21→10:39)
[2019-12-22] MEDS ORDERED: Bupivacaine 0.5% 30 ML SDV ONE (08:35)
[2019-12-22] MEDS ORDERED: Midazolam 1 MG/ML 2 ML SDV ONE (08:35)
[2019-12-22] MEDS ORDERED: fentaNYL 100 MCG/2 ML SDV ONE (08:36)
[2019-12-22] MEDS ORDERED: Propofol 200 MG/20 ML SDV ONE (08:36)
[2019-12-22] MEDS ORDERED: Lidocaine 1% 4 ML ONE (08:44)
[2019-12-22] MEDS ORDERED: Succinylcholine/Sod PF 100 MG/5 ML SYRINGE IV ONE (08:48)
[2019-12-22] MEDS ORDERED: ceFAZolin 1 GM Vial ONE (09:01)
[2019-12-22] MEDS ORDERED: Rocuronium 50 MG/5 ML Vial ONE (09:14)
[2019-12-22] MEDS ORDERED: Dexamethasone 4 MG/ML 5 ML MDV ONE (09:17)
[2019-12-22] MEDS ORDERED: Ondansetron 4 MG/2 ML SDV ONE (09:18)
[2019-12-22] MEDS ORDERED: Lactated Ringers 1,000 ML ONE (09:18)
[2019-12-22] MEDS ORDERED: HYDROmorphone 0.5 MG/0.5 ML Syringe IVPUSH PRN (09:38)
[2019-12-22] MEDS ORDERED: fentaNYL 100 MCG/2 ML SDV IVPUSH PRN (09:38)
[2019-12-22] MEDS ORDERED: HYDROmorphone 0.5 MG/0.5 ML Syringe ONE ×2 (09:43→09:55)
[2019-12-22] MEDS ORDERED: Ondansetron 4 MG/2 ML SDV IVPUSH PRN (10:00)
[2019-12-22] MEDS ORDERED: Acetaminophen/oxyCODONE 325-5 MG Tab PO PRN (10:00)
[2019-12-22] MEDS ORDERED: Ketorolac 30 MG/ML SDV IVPUSH SCH (10:00)
--- NOTE | 2019-12-22 10:15 | PCM.OPNOTE ---
- General Post-Op/Procedure Note Date of Surgery/Procedure: 12/22/19 Operative Procedure(s): Dilation and suction curettage, diagnostic laparoscopy Findings: Uterus sounded to 9 cm. Small amount of tissue was noted in the endometrial canal. Possibly consistent with products of conception. On laparoscopy patient is noted to have a 9-1/2 cm fibroid which occupied much of the pelvis. Both fallopian tubes and ovaries were otherwise unremarkable. Posterior cul-de-sac unremarkable. Appendix not visualized. Liver edge is clear and unremarkable. Minimal amount of blood in the posterior cul-de-sac most probably secondary to the operative procedure itself. Pre Op Diagnosis: 1. Left lower quadrant pain. 2. Abnormal reduction in quantitative beta-hCG. 3. Thickened endometrium Post-Op Diagnosis: Same with probable retained products of conception. Anesthesia Technique: General ET Tube Other Anesthesia Type: Marcaine 0.5%�approximately 10 mL total Primary Surgeon: Segun Saenz Secondary Surgeon: Zen Randall Anesthesia Provider: Robert Aranda Commercial Reporter: Richar Loyola Reason Commercial Reporter Was Necessary: Retraction, assistance, patient safety, quality of care. Pathology: Endometrial curettings consistent with products of conception. Fluid Replacement, Intraop: 1,800 Output, Urine Amount: 150 EBL in mLs: 10 Drain/Tube Comments:: Indwelling bladder catheter during surgery only. Complications: None Condition: Good Free Text/Narrative:: Surgery duration: 20 minutes Procedure: Lora was taken to the operating room and placed in supine position on the operating table. She was administered 2 g of Ancef preoperatively for infection prophylaxis and had sequential compression stockings in place for DVT prophylaxis. She is administered general endotracheal anesthesia. After adequate anesthesia patient was placed in the dorsal lithotomy position, prepped and draped in usual fashion. A indwelling bladder catheter was then placed. D&C was performed. The cervix was visualized using weighted speculum and a retractor. Is grasped anteriorly with single- toothed tenaculum. Uterus was sounded to 9 cm. The cervix was then dilated to accommodate a 7 mm suction curet. Suction curet was introduced and a small amount of tissue was removed. Sharp curet was then introduced and minimal tissue was removed. The suction curet was then reintroduced to remove remaining blood. At this time the patient was returned to a supine position and laparoscopy was performed. Infraumbilical incision site was infiltrated with Marcaine 0.5% approximately 5 mL. Incision was made and a pneumoperitoneum was established using a verres needle and approximately 4 L of CO2. A 5 mm scope trocar and port was introduced.. 2 lateral laparoscopic port sites were also developed for 5 mm trochars. The pelvis was then visualized, a massive fibroid was noted which occupied most of the pelvis. Anterior cul-de-sac and posterior cul-de-sac were free of any lesions. With some difficulty both fallopian tubes were visualized and found to be within normal limits as were both ovaries. There was no evidence of ectopic . Small amount of blood present was felt to be due to the laparoscopy procedure itself. The appendix was not visualized as it appeared to be retrocecal. No inflammation was noted. Liver edge was unremarkable. Upon confirmation that there was no tubal the procedure was then discontinued. The lateral laparoscopic sleeves were removed under direct visualization. Pneumoperitoneum was reversed. The infraumbilical and port was removed. All incisions were closed with single interrupted suture of 3- 0 Monocryl. There further approximated with Dermabond skin glue. Patient was awakened from general endotracheal anesthesia after the indwelling bladder catheter was removed. She left the operating room in good condition.
--- NOTE | 2019-12-22 10:21 | PCM.POSTAN ---
POST ANESTHESIA ASSESSMENT - MENTAL STATUS Mental Status: Alert, Oriented - VITAL SIGNS Vital Signs: Last Vital Signs Temp 97.0 F 12/22/19 10:03 Pulse 83 12/22/19 08:18 Resp 24 H 12/22/19 10:03 BP 123/66 12/22/19 10:03 Pulse Ox 97 12/22/19 10:03 - RESPIRATORY Respiratory Status: Respiratory Rate WNL, Airway Patent, O2 Saturation Stable, Supplemental Oxygen - CARDIOVASCULAR CV Status: Pulse Rate WNL, Blood Pressure Stable - PAIN Pain Score: 5 - POST OP HYDRATION Hydration Status: Adequate & Stable
--- NOTE | 2019-12-22 15:23 | PCM48HPAN ---
Post Anesthesia Note - EVALUATION WITHIN 48HRS OF ANESTHETIC Vital Signs in Normal Range: Yes Patient Participated in Evaluation: Yes Respiratory Function Stable: Yes Airway Patent: Yes Cardiovascular Function Stable: Yes Hydration Status Stable: Yes Pain Control Satisfactory: Yes Nausea and Vomiting Control Satisfactory: Yes Mental Status Recovered: Yes Vital Signs: Last Vital Signs Temp 97.3 F 12/22/19 12:00 Pulse 85 12/22/19 12:00 Resp 16 12/22/19 12:00 BP 109/65 12/22/19 12:00 Pulse Ox 99 12/22/19 12:00
[2019-12-23] MEDS ORDERED: Sodium Chloride 0.9% 10 ML Syringe FLUSH PRN (00:01)
[2019-12-23] MEDS ORDERED: Lactated Ringers 1,000 ML IV SCH (00:01)
[2019-12-23] MEDS ORDERED: Lidocaine 1%/Sod Bicarbonate in NS 8.4% 1 ML Syringe IDERM PRN (00:01)
== END 2019-12-22 12:15 | disposition home or self-care (01) ==
LOC: JD.SDS 07:19
PROVIDERS: ATTEND Obstetrics & Gynecology
DX: O02.89 Other abnormal products of conception (principal); D25.9 Leiomyoma of uterus, unspecified; R93.89 Abnormal findings on diagnostic imaging of other specified body structures; Z88.2 Allergy status to sulfonamides; Z87.891 Personal history of nicotine dependence
CPT/HCPCS: 49320; 58120; A9270; J0330; J0690; J1100; J1170; J1885; J2001; J2250; J2405; J2704; J2710; J3010; J3490; J7120; 01965

== ENCOUNTER 2020-01-19 08:32 | Inpatient (IN) | payer MEDICAID, OTHER ==
--- NOTE | 2020-01-18 13:48 | PCM.HP.2 ---
H&P History of Present Illness - General Date of Service: 01/19/20 Admit Problem/Dx: Uterine fibroid Source of Information: Patient History Limitations: Reports: No Limitations - History of Present Illness Initial Comments - Free Text/Narative: Lora Is a 39-year-old 1 para 0010 white female who is admitted for surgery to consist of laparotomy and and myomectomy. She is noted to have very large fibroid 9-10 cm. She has had 1 loss within the last 3-6 months. She has a moderate amount of discomfort at times. She also feels a fullness in her pelvis which is related to the fibroid. Ultrasound evaluation done on 12/21/2019 shows a large uterine fibroid 9010 cm in size. This distorts the endometrial cavity significantly. Best estimate of endometrial cavity thickness is 1.85 cm. The posterior cul-de-sac is within normal limits. Right ovary is within normal size as was the left ovary. No free fluid is noted in posterior cul-de-sac. Laparotomy with myomectomy procedure, risks, benefits, follow-up, also implications as far as uterine scar, possibility of labor and its risks are all discussed in detail with patient. Patient also aware that I cannot guarantee that she will be able to achieve or maintain a to term. She appears to understand, wishes to proceed and has signed a consent. 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 Psychiatric. No control. No abnormal Pap smears, STI's noted in the past. Allergies: Sulfur which causes a rash Medications: vitamins Past medical history: 1. Uterine fibroids 2. Pelvic pain 3. History of miscarriage Past surgical history: 1. Appendectomy 2. Cholecystectomylaparoscopic 3. Tonsillectomy Family history: Mother with hypothyroidism. Father with some type of cardiac disorder. No bleeding or blood clotting disorders noted in the family. Social history: Patient is single. She has a history of smoking but does not smoke presently. She is currently not working as she has been referred because of the hagen virus and damage. She is a college graduate. She does not use any significant amounts of alcohol and no drugs. Review of systems: In general patient has has the dual complaints of pain and fullness in her abdomen which she attributes to the uterine fibroid. Skin: Negative Lungs: No infectious symptoms or shortness of breath Cardiovascular: No chest pain or exercise intolerance Breasts: No lumps, changes in size, pain, dimpling, discharge or axillary or supraclavicular concerns. GI: Negative : See history of present illness Musculoskeletal: Negative Neurological: Negative In general the patient is well-developed, well-nourished, pleasant female of stated age in no acute distress. Last evaluation clinic patient is noted to have weight of 230 pounds. She is 5 feet 9 inches. Body mass index is 33.97. Blood pressure is 100/70. Patient reported pain 6 on a scale of 10. Skin is warm dry without lesions. HEENT, neck and back within normal limits. Lungs are clear with good breath sounds in all lung snell. Cardiovascular exam shows regular and rhythm without murmurs. Abdomen is flat, soft, nontender without masses or organomegaly. Positive bowel sounds are noted. No inguinal lymphadenopathy or hernias are noted. Uterine fibroid is palpated Genital exam done previously shows uterine fibroid. Areas freely movable. Uterus is generous size because of the fibroid. Extremities and neurological exam are grossly within normal limits. - Related Data Allergies/Adverse Reactions: Allergies Allergy/AdvReac Type Severity Reaction Status Date / Time Sulfa (Sulfonamide Allergy Blisters Verified 12/22/19 08:13 Antibiotics) Home Medications: Home Meds oxyCODONE HCl/Acetaminophen [Percocet 5-325 mg Tablet] 1 - 2 each PO Q4H PRN # 10 tablet 10/12/19 [Rx] Ibuprofen 600 mg PO Q4HR PRN #30 tablet 12/22/19 [Rx] Vits #93/Iron Fum/FA [ Formula Tablet] 1 tab PO DAILY 12/22/19 [History] Past Medical History HEENT History: Reports: Impaired Vision Cardiovascular History: Reports: None Respiratory History: Reports: None Gastrointestinal History: Reports: None Genitourinary History: Reports: None [employer] History: Reports: , Spontaneous Other OB/BYN History: bacterial vaginosis, uterine fibroid Musculoskeletal History: Reports: None Neurological History: Reports: None Psychiatric History: Reports: None Endocrine/Metabolic History: Reports: None Hematologic History: Reports: None Immunologic History: Reports: None Oncologic (Cancer) History: Reports: None Dermatologic History: Reports: None - Past Surgical History Head Surgeries/Procedures: Reports: None HEENT Surgical History: Reports: Tonsillectomy Cardiovascular Surgical History: Reports: None Respiratory Surgical History: Reports: None GI Surgical History: Reports: Appendectomy, Cholecystectomy Female Surgical History: Reports: None Male Surgical History: Reports: None Endocrine Surgical History: Reports: None Neurological Surgical History: Reports: None Musculoskeletal Surgical History: Reports: None Oncologic Surgical History: Reports: Bone Marrow Transplant Dermatological Surgical History: Reports: None Social & Family History - Caffeine Use Caffeine Use: Reports: None - Living Situation & Occupation Living situation: Reports: Single Occupation: Employed H&P Review of Systems - Review of Systems: Review Of Systems: See Below Exam - Exam Exam: See Below *Q Meaningful Use (ADM) - VTE Risk Assess *Q Each Risk Factor Represents 1 Point: Obesity ( BMI > 25 kg/m2), Other Risk Factor Total Score 1 Point Risk Factors: 2 Problem List Initiated/Reviewed/Updated: Yes Orders Last 24hrs: Active Orders 24 hr Category Date Time Status Peripheral IV Care [RC] . DIRECTED Care 01/18/20 07:00 Active Verify Patient Consent Obtain [RC] ASDIRECTED Care 01/18/20 07:00 Active HCG QUALITATIVE,URINE [URCHEM] Routine Lab 01/18/20 07:00 Ordered Lactated Ringers [Ringers, Lactated] 1,000 ml Med 01/18/20 07:00 Active IV ASDIRECTED Lidocaine 1%/Sod Bicarbonate [Buffered Lidocaine 1% in Med 01/18/20 07:00 Active NS 8.4%] 0.25 ml IDERM ONETIME PRN Sodium Chloride 0.9% [Saline Flush] Med 01/18/20 07:00 Active 10 ml FLUSH ASDIRECTED PRN Medication Administration Instruction [OM.PC] Routine Oth 01/18/20 07:00 Ordered Peripheral IV Insertion Adult [OM.PC] Routine Oth 01/18/20 07:00 Ordered Medication Orders Lactated Ringer's (Ringers, Lactated) 1,000 mls @ 125 mls/hr IV ASDIRECTED HERMANN Lidocaine/Sodium Bicarbonate (Buffered Lidocaine 1% In Ns 8.4%) 0.25 ml IDERM ONETIME PRN PRN Reason: Prior to IV Start Stop: 01/18/20 18:00 Sodium Chloride (Saline Flush) 10 ml FLUSH ASDIRECTED PRN PRN Reason: Keep Vein Open Assessment/Plan Comment:: 1. Large 9 -10 centimeter uterine gbpgugd-vfdjlncgnyp-utplrjeod potential cause of miscarriage. 2. Risk factors for surgery including increased weight. 3. Generally healthy female. Plan: 1. Laparotomy with myomectomy. Procedure, risks, benefits, implications as far as getting , maintaining , possible need to stay in the hospital overnight all discussed with patient. She appears to understand and wishes to proceed 2. DVT prophylaxis with SCDs 3. Infection prophylaxis with Ancef 2 g IV preop 4. CBC, urinalysis, test
--- NOTE | 2020-01-19 07:41 | PCM.PREANE ---
Preanesthetic Assessment - Procedure Proposed Procedure: Laparotomy with myomectomy - Anesthesia/Transfusion/Family Hx Anesthesia History: Prior Anesthesia Without Reaction Transfusion History: No Prior Transfusion(s) Intubation History: Unknown - Review of Systems General: No Symptoms Pulmonary: No Symptoms Cardiovascular: No Symptoms Gastrointestinal: No Symptoms Neurological: No Symptoms Other: Reports: None - Physical Assessment NPO Status Date: 01/18/20 NPO Status Time: 19:00 Vital Signs: Last Vital Signs Temp 97.1 F 01/19/20 06:25 Pulse 84 01/19/20 06:25 Resp 18 01/19/20 06:25 BP 117/76 01/19/20 06:25 Pulse Ox 95 01/19/20 06:25 Height: 1.75 m Weight: 99.79 kg ASA Class: 2 Mental Status: Alert & Oriented x3 Airway Class: Mallampati = 1 Dentition: Reports: Normal Dentition Thyro-Mental Finger Breadths: 3 Mouth Opening Finger Breadths: 3 ROM/Head Extension: Full Lungs: Clear to Auscultation, Normal Respiratory Effort Cardiovascular: Regular Rate, Regular Rhythm - Lab Values: Laboratory Last Values WBC 10.13 K/mm3 (3.98-10.04) H 01/19/20 06:43 RBC 4.97 M/mm3 (3.98-5.22) 01/19/20 06:43 Hgb 13.4 gm/dl (11.2-15.7) 01/19/20 06:43 Hct 40.6 % (34.1-44.9) 01/19/20 06:43 MCV 81.7 fl (79.4-94.8) 01/19/20 06:43 MCH 27.0 pg (25.6-32.2) 01/19/20 06:43 MCHC 33.0 g/dl (32.2-35.5) 01/19/20 06:43 RDW Std Deviation 41.8 fL (36.4-46.3) 01/19/20 06:43 Plt Count 313 K/mm3 (182-369) 01/19/20 06:43 MPV 10.2 fl (9.4-12.3) 01/19/20 06:43 Neut % (Auto) 41.1 % (34.0-71.1) 01/19/20 06:43 Lymph % (Auto) 48.8 % (19.3-51.7) 01/19/20 06:43 [place] % (Auto) 6.6 % (4.7-12.5) 01/19/20 06:43 Eos % (Auto) 3.0 (0.7-5.8) 01/19/20 06:43 Baso % (Auto) 0.3 % (0.1-1.2) 01/19/20 06:43 Neut # (Auto) 4.17 K/mm3 (1.56-6.13) 01/19/20 06:43 Lymph # (Auto) 4.94 K/mm3 (1.18-3.74) H 01/19/20 06:43 [place] # (Auto) 0.67 K/mm3 (0.24-0.36) H 01/19/20 06:43 Eos # (Auto) 0.30 K/mm3 (0.04-0.36) 01/19/20 06:43 Baso # (Auto) 0.03 K/mm3 (0.01-0.08) 01/19/20 06:43 Urine HCG, Qual Negative (NEGATIVE) 01/19/20 06:20 - Allergies Allergies/Adverse Reactions: Allergies Allergy/AdvReac Type Severity Reaction Status Date / Time Sulfa (Sulfonamide Allergy Blisters Verified 01/18/20 15:06 Antibiotics) - Acknowledgements Anesthesia Type Planned: Spinal Pt an Appropriate Candidate for the Planned Anesthesia: Yes Alternatives and Risks of Anesthesia Discussed w Pt/Guardian: Yes Pt/Guardian Understands and Agrees with Anesthesia Plan: Yes PreAnesthesia Questionnaire HEENT History: Reports: Impaired Vision Gastrointestinal History: Reports: None Genitourinary History: Reports: None 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: , 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 Other OB/BYN History: bacterial vaginosis, uterine fibroid, pelvic pain, diagnostic laparoscopy Musculoskeletal History: Reports: None Neurological History: Reports: None Psychiatric History: Reports: None Endocrine/Metabolic History: Reports: None Hematologic History: Reports: None Immunologic History: Reports: None Oncologic (Cancer) History: Reports: None Dermatologic History: Reports: None - Infectious Disease History Infectious Disease History: Reports: None - Past Surgical History HEENT Surgical History: Reports: Tonsillectomy GI Surgical History: Reports: Appendectomy, Cholecystectomy Female Surgical History: Reports: D&C Male Surgical History: Reports: None Endocrine Surgical History: Reports: None Neurological Surgical History: Reports: None Musculoskeletal Surgical History: Reports: None Oncologic Surgical History: Reports: None Dermatological Surgical History: Reports: None - SUBSTANCE USE Smoking Status *Q: Never Smoker Recreational Drug Use History: No - HOME MEDS Home Medications: Home Meds Ibuprofen 600 mg PO Q4HR PRN #30 tablet 12/22/19 [Rx] - CURRENT (IN HOUSE) MEDS Current Meds: Current Medications Lactated Ringer's (Ringers, Lactated) 1,000 mls @ 125 mls/hr IV ASDIRECTED HERMANN Last Admin: 01/19/20 06:21 Dose: 125 mls/hr Sodium Chloride (Saline Flush) 10 ml FLUSH ASDIRECTED PRN PRN Reason: Keep Vein Open Discontinued Medications Bupivacaine HCl (Marcaine 0.5%) Confirm Administered Dose 30 ml .ROUTE .STK-MED ONE Stop: 01/19/20 07:08 Lidocaine/Epinephrine (Xylocaine 1% With Epinephrine 1:100,000) Confirm Administered Dose 20 ml .ROUTE .STK-MED ONE Stop: 01/19/20 07:08 Lidocaine/Sodium Bicarbonate (Buffered Lidocaine 1% In Ns 8.4%) 0.25 ml IDERM ONETIME PRN PRN Reason: Prior to IV Start Stop: 01/18/20 18:00 Last Admin: 01/19/20 06:19 Dose: 0.25 ml
[~2020-01-19 08:32] MED LIST: Bupivacaine 0.5% 30 ML SDV ONE; Lactated Ringers 1,000 ML IV SCH; Lactated Ringers 1,000 ML ONE; Lidocaine 1% 2 ML ONE; Lidocaine 1% with EPINEPHrine 1:100,000 20 ML MDV ONE; Lidocaine 1%/Sod Bicarbonate in NS 8.4% 1 ML Syringe IDERM PRN; Midazolam 1 MG/ML 2 ML SDV ONE; Ondansetron 4 MG/2 ML SDV IVPUSH PRN; Propofol 200 MG/20 ML SDV ONE; Sodium Chloride 0.9% 10 ML Syringe FLUSH PRN; ceFAZolin 1 GM Vial ONE; fentaNYL 100 MCG/2 ML SDV ONE
[2020-01-19] MEDS ORDERED: Propofol 200 MG/20 ML SDV ONE ×2 (08:40→09:13)
[2020-01-19] MEDS ORDERED: Lidocaine 1% with EPINEPHrine 1:100,000 20 ML MDV ONE (08:59)
[2020-01-19] MEDS ORDERED: Lactated Ringers 1,000 ML ONE (09:17)
[2020-01-19] MEDS ORDERED: Ibuprofen 800 MG Tab PO PRN (09:55)
[2020-01-19] MEDS ORDERED: HYDROmorphone 0.5 MG/0.5 ML Syringe ONE (09:55)
[2020-01-19] MEDS ORDERED: Ondansetron 4 MG/2 ML SDV IVPUSH PRN (09:57)
[2020-01-19] MEDS ORDERED: HYDROmorphone 0.5 MG/0.5 ML Syringe IVPUSH PRN (10:00)
[2020-01-19] MEDS ORDERED: fentaNYL 100 MCG/2 ML SDV IVPUSH PRN (10:00)
--- NOTE | 2020-01-19 10:07 | PCM.OPNOTE ---
- General Post-Op/Procedure Note Date of Surgery/Procedure: 01/19/20 Operative Procedure(s): Laparotomy with myomectomy Findings: Patient had 2 identifiable fibroids one approximately 10 cm in diameter? posterior fundal area. She had a 2 x 3 cm fibroid in the right posterior uterine area. Pre Op Diagnosis: Uterine fibroids Post-Op Diagnosis: Same Anesthesia Technique: Moderate Sedation, Spinal Other Anesthesia Type: Marcaine 0.5%�10 mL, lidocaine with epinephrine- Primary Surgeon: Segun Saenz Secondary Surgeon: Zen Randall Anesthesia Provider: Robert Aranda Reason Psychology Clinician Was Necessary: Retraction, assistance, patient's safety, quality of care. Fluid Replacement, Intraop: 2,500 Output, Urine Amount: 300 EBL in mLs: 500 Drain/Tube Comments:: Indwelling bladder catheter Complications: None Condition: Good Free Text/Narrative:: Surgery duration: 90 minutes Procedure: Procedure: After adequate consent was obtained, the patient was taken to the operating room. She was given 2 g of Ancef IV for infection prophylaxis. She had sequential compression stockings placed for DVT prophylaxis. She is administered spinal anesthesia. After adequate administration of anesthesia patient was given moderate sedation to field technical assistant in her comfort level. She was then placed in a lithotomy position with feet in the modified Wing stirrups. She was prepped vaginally and abdominally in the routine fashion. Zazueta catheter was placed as was a uterine manipulator which was intended for instillation of methylene blue if necessary. Patient's abdomen was then opened through a Pfannenstiel skin incision. The incision was carried down through skin, subcutaneous and fascial layers. Abdominal cavity was entered without problems. After entrance into the abdominal cavity the pelvis was evaluated uterus is found to be approximately 15 weeks' size. There is a posterior fundal fibroid 10 cm in diameter and a posterior right-sided fibroid approximately 2-3 cm in size. The ovaries looked functional as did the fallopian tubes. No scarring of significance was noted. The incision was enlarged to allow the uterus to be brought forth through the incision using a disposable Adonay retractor. The area overlying the lower fibroid was infiltrated with lidocaine with epinephrine approximately 5 mL. Incision was made above this and this fibroid was removed in a routine fashion shelling it out. The incision was closed with a short running suture of 0 Monocryl. Decision was made to proceed withA longitudinal incision coming from high and posterior uterine surface up around the fundus on, large enough to allow removal of the fibroid. This area was infiltrated also with lidocaine plus epinephrine solution for hemostasis reasons. Incision was made and the large 10 cm fibroid was removed. The area was closed in 3 layers. Due to the positioning and the size of the fibroid is noted that a small entrance into the uterine cavity proximally 1 cm was identified. This was closed in a separate layer from the rest of the closure. This closure was with 0 Monocryl. The upper layers are closed in a 2 layer fashion with a running locked suture placed for hemostasis reason layers. Again 0 Monocryl was used. At this time hemostasis was confirmed. The ovaries, fallopian tubes anterior and posterior cul-de-sac per visualized and found to be hemostatically intact and without any concerns. Interceed adhesion barrier was then placed over both uterine incisions and the uterus was placed back in the abdominal cavity. 3 lap packs which been placed previously and tagged were then removed. At this time sponge, instrument and needle counts are correct. The abdomen was then closed in a routine fashion using #1 PDS and the fascial layer. The skin was closed with running subcuticular stitch using 3-0 Monocryl.Prineo mesh was used for further approximation of the skin. The uterine repair was removed. Zazueta catheter was left in place. From the operating room in good condition.
[2020-01-19] MEDS: HYDROmorphone 0.5 MG/0.5 ML Syringe IVPUSH PRN ×3 (10:09→21:34)
--- NOTE | 2020-01-19 10:13 | PCM.POSTAN ---
POST ANESTHESIA ASSESSMENT - MENTAL STATUS Mental Status: Alert, Oriented - VITAL SIGNS Vital Signs: Last Vital Signs Temp 98.6 F 01/19/20 09:52 Pulse 84 01/19/20 09:52 Resp 15 01/19/20 09:52 BP 110/97 H 01/19/20 09:52 Pulse Ox 100 01/19/20 09:52 - RESPIRATORY Respiratory Status: Respiratory Rate WNL, Airway Patent, O2 Saturation Stable - CARDIOVASCULAR CV Status: Pulse Rate WNL, Blood Pressure Stable - GASTROINTESTINAL GI Status: No Symptoms - PAIN Pain Score: 6 (DILAUDID 0.5MG GIVEN) - POST OP HYDRATION Hydration Status: Adequate & Stable
[2020-01-19] MEDS ORDERED: Ketorolac 30 MG/ML SDV IVPUSH ONE (10:44)
--- NOTE | 2020-01-19 12:11 | PCM48HPAN ---
Post Anesthesia Note - EVALUATION WITHIN 48HRS OF ANESTHETIC Vital Signs in Normal Range: Yes Patient Participated in Evaluation: Yes Respiratory Function Stable: Yes Airway Patent: Yes Cardiovascular Function Stable: Yes Hydration Status Stable: Yes Pain Control Satisfactory: Yes (2/10, tolerable) Nausea and Vomiting Control Satisfactory: Yes Mental Status Recovered: Yes Vital Signs: Last Vital Signs Temp 98.1 F 01/19/20 10:55 Pulse 70 01/19/20 10:55 Resp 13 01/19/20 10:55 BP 120/82 01/19/20 10:55 Pulse Ox 99 01/19/20 10:55 - COMMENTS/OBSERVATIONS Free Text/Narrative:: Patient is being transferred for extended floor recovery. Zazueta catheter to be removed on the floor.
[2020-01-19] MEDS: Acetaminophen/oxyCODONE 325-5 MG Tab PO PRN ×2 (14:43→18:37)
[2020-01-19] MEDS ORDERED: Sodium Chloride 0.9% 1,000 ML IV SCH (19:00)
[2020-01-19] MEDS: Ibuprofen 800 MG Tab PO PRN (20:32)
[2020-01-19] MEDS: Dextrose 5%-Lactated Ringers 1,000 ML IV SCH (20:33)
[2020-01-20] MEDS: Acetaminophen/oxyCODONE 325-5 MG Tab PO PRN ×4 (00:35→19:03)
[2020-01-20] MEDS: Dextrose 5%-Lactated Ringers 1,000 ML IV SCH (03:23)
[2020-01-20] MEDS: Ibuprofen 800 MG Tab PO PRN ×2 (04:36→12:47)
--- NOTE | 2020-01-20 12:43 | PCM.SN.2 ---
- Free Text/Narrative Note: Operative day #1: Status post laparotomy with myomectomy In general patient is doing well. Her pain is decreased significantly since yesterday. Vital signs are stable, patient is afebrile, I know is adequate. Patient is drinking and eating well. She is voiding without problems. Lungs are clear with good breath sounds in all lung snell. Cardiovascular exam shows regular and. Abdomen is flat, soft, nontender. Bowel sounds are normal. Incision appears to dry and intact. Legs are nontender. Assessment: Postoperative day #1�normal recovery. Plan: 1. Increased diet and activity 2. Oral analgesia. 3. Consider discharge home as patient is able to manage.
--- NOTE | 2020-01-20 17:19 | PCM.DCSUM1 ---
Discharge Summary - Hospital Course Free Text/Narrative:: Lora Is a 39-year-old 1 para 0010 white female who was admitted for surgery to consist of laparotomy and and myomectomy. She was noted to have very large fibroid 9-10 cm. She has had 1 loss within the last 3-6 months. She has a moderate amount of discomfort at times. She also feels a fullness in her pelvis which is related to the fibroid. Ultrasound evaluation done on 12/21/2019 shows a large posterior uterine fibroid 9 -10 cm in size. This distorted the endometrial cavity significantly. The posterior cul-de-sac was within normal limits. Right ovary was within normal size as was the left ovary. No free fluid was noted in posterior cul-de-sac. Patient underwent laparotomy with myomectomy �2. A posterior right-sided myoma was removed measuring 2 x 3 cm. A large 10 cm fibroid was removed from the posterior fundal area of the uterus. Please see operative report for details. Postoperatively pain was controlled with Dilaudid initially then eventually ibuprofen and Percocet which is doing well on at the time of discharge. She is made good bowel, bladder, ambulatory recovery. She is desiring discharge home. Diagnosis: Stroke: No - Discharge Data Discharge Date: 01/20/20 Discharge Disposition: Home, Self-Care 01 Condition: Good - Referral to Home Health Primary Care Physician: Segun Saenz MD - Patient Summary/Data Operative Procedure(s) Performed: Laparotomy with myomectomy - Patient Instructions Diet: Regular Diet as Tolerated Activity: As Tolerated (No lifting greater than 15 pounds or driving a car �1 week. No intercourse or tampons until seen back.) Driving: Do Not Drive Showering/Bathing: May Shower Wound/Incision Care: Keep Operative Site/Wound Site Clean and Dry Notify Provider of: Fever, Increased Pain, Swelling and Redness, Nausea and/or Vomiting - Discharge Plan Home Medications: Home Meds Ibuprofen 600 mg PO Q4HR PRN #30 tablet 12/22/19 [Rx] Acetaminophen/oxyCODONE [Percocet 325-5 MG] 2 tab PO Q4H PRN tablet 01/20/20 [ Rx] Oxygen Therapy Mode: Mechanical Ventilation Referrals: Segun Saenz MD [Primary Care Provider] - (Return to clinic�DrTal Saenz�2 weeks.) - Discharge Summary/Plan Comment DC Time >30 min.: No Discharge Summary/Plan Comment: Discharge instructions: 1. Discharge home 2. Diet, activity and follow-up discussed with patient. Recommend high fiber diet with adequate hydration 3. Precautions given concern increased pain, bleeding, temperature, signs/ symptoms of DVT/PE. 4. Medications per home medication was printed, discussed with and given to the patient. 5. Return to clinic-Dr. Saenz-[facility] in 2 weeks. Diagnosis: Uterine fibroids, loss-now status post laparotomy with myomectomy. Condition: Good - Patient Data Vitals - Most Recent: Last Vital Signs Temp 36.8 C 01/20/20 13:31 Pulse 74 01/20/20 13:32 Resp 12 01/20/20 13:31 BP 105/74 01/20/20 13:32 Pulse Ox 96 01/20/20 13:32 Weight - Most Recent: 102.784 kg I&O - Last 24 hours: Intake & Output 01/20/20 01/20/20 01/20/20 06:59 14:59 22:59 Intake Total 1951 120 620 Balance 1951 120 620 Lab Results - Last 24 hrs: Laboratory Results - last 24 hr 01/19/20 01/19/20 Range/Units 19:06 19:06 WBC 11.31 H (3.98-10.04) K/mm3 RBC 4.04 (3.98-5.22) M/mm3 Hgb 10.9 L D (11.2-15.7) gm/dl Hct 33.6 L (34.1-44.9) % MCV 83.2 (79.4-94.8) fl MCH 27.0 (25.6-32.2) pg MCHC 32.4 (32.2-35.5) g/dl RDW Std Deviation 41.5 (36.4-46.3) fL Plt Count 240 (182-369) K/mm3 MPV 9.7 (9.4-12.3) fl Neut % (Auto) 72.2 H (34.0-71.1) % Lymph % (Auto) 21.9 (19.3-51.7) % Gilliam % (Auto) 5.1 (4.7-12.5) % Eos % (Auto) 0.6 L (0.7-5.8) Baso % (Auto) 0.1 (0.1-1.2) % Neut # (Auto) 8.16 H (1.56-6.13) K/mm3 Lymph # (Auto) 2.48 (1.18-3.74) K/mm3 Gilliam # (Auto) 0.58 H (0.24-0.36) K/mm3 Eos # (Auto) 0.07 (0.04-0.36) K/mm3 Baso # (Auto) 0.01 (0.01-0.08) K/mm3 Sodium 136 (136-145) mEq/L Potassium 4.0 (3.5-5.1) mEq/L Chloride 103 (98-107) mEq/L Carbon Dioxide 25 (21-32) mEq/L Anion Gap 12.0 (5-15) BUN 8 (7-18) mg/dL Creatinine 0.9 (0.55-1.02) mg/dL Est Cr Clr Drug Dosing 87.70 mL/min Estimated GFR (MDRD) > 60 (>60) mL/min BUN/Creatinine Ratio 8.9 L (14-18) Glucose 153 H (74-106) mg/dL Calcium 7.9 L (8.5-10.1) mg/dL Med Orders - Current: Current Medications Hydromorphone HCl (Dilaudid) 0.5 mg IVPUSH Q1H PRN PRN Reason: Pain (severe 7-10) Last Admin: 01/19/20 21:34 Dose: 0.5 mg Dextrose/Lactated Ringer's (Dextrose 5%-Lactated Ringers) 1,000 mls @ 150 mls/ hr IV ASDIRECTED HERMANN Last Admin: 01/20/20 03:23 Dose: 150 mls/hr Ibuprofen (Motrin) 800 mg PO Q8H PRN PRN Reason: mild pain or fever Last Admin: 01/20/20 12:47 Dose: 800 mg Ondansetron HCl (Zofran) 4 mg IVPUSH Q4H PRN PRN Reason: Nausea Last Admin: 01/19/20 18:49 Dose: 4 mg Oxycodone/Acetaminophen (Percocet 325-5 Mg) 2 tab PO Q4H PRN PRN Reason: Pain Last Admin: 01/20/20 12:43 Dose: 2 tab Discontinued Medications Bupivacaine HCl (Marcaine 0.5%) Confirm Administered Dose 30 ml .ROUTE .STK-MED ONE Stop: 01/19/20 07:08 Last Admin: 01/19/20 08:35 Dose: 10 ml Cefazolin Sodium (Ancef) Confirm Administered Dose 2 gm .ROUTE .STK-MED ONE Stop: 01/19/20 07:50 Fentanyl (Sublimaze) Confirm Administered Dose 100 mcg .ROUTE .STK-MED ONE Stop: 01/19/20 07:49 Fentanyl (Sublimaze) 100 mcg IVPUSH Q5M PRN PRN Reason: Pain Stop: 01/19/20 14:00 Hydromorphone HCl (Dilaudid) Confirm Administered Dose 0.5 mg .ROUTE .STK-MED ONE Stop: 01/19/20 09:56 Hydromorphone HCl (Dilaudid) 0.5 mg IVPUSH Q10M PRN PRN Reason: Pain (severe 7-10) Stop: 01/19/20 14:00 Lactated Ringer's (Ringers, Lactated) 1,000 mls @ 125 mls/hr IV ASDIRECTED [facility] Stop: 01/19/20 23:00 Last Admin: 01/19/20 06:21 Dose: 125 mls/hr Lidocaine HCl (Xylocaine-Mpf 1%) Confirm Administered Dose 2 mls @ as directed .ROUTE .STK-MED ONE Stop: 01/19/20 08:12 Lactated Ringer's (Ringers, Lactated) Confirm Administered Dose 1,000 mls @ as directed .ROUTE .STK-MED ONE Stop: 01/19/20 08:24 Lactated Ringer's (Ringers, Lactated) Confirm Administered Dose 1,000 mls @ as directed .ROUTE .STK-MED ONE Stop: 01/19/20 09:18 Sodium Chloride (Normal Saline) 1,000 mls @ 999 mls/hr IV ASDIRECTED [facility] Stop: 01/23/20 18:56 Last Admin: 01/19/20 19:29 Dose: 999 mls/hr Ibuprofen (Motrin) 800 mg PO Q8H PRN PRN Reason: mild pain or fever Ketorolac Tromethamine (Toradol) 30 mg IVPUSH ONETIME ONE Stop: 01/19/20 10:45 Last Admin: 01/19/20 10:52 Dose: 30 mg Lidocaine/Epinephrine (Xylocaine 1% With Epinephrine 1:100,000) Confirm Administered Dose 20 ml .ROUTE .STK-MED ONE Stop: 01/19/20 07:08 Last Admin: 01/19/20 08:40 Dose: 20 ml Lidocaine/Epinephrine (Xylocaine 1% With Epinephrine 1:100,000) Confirm Administered Dose 20 ml .ROUTE .STK-MED ONE Stop: 01/19/20 09:00 Lidocaine/Sodium Bicarbonate (Buffered Lidocaine 1% In Ns 8.4%) 0.25 ml IDERM ONETIME PRN PRN Reason: Prior to IV Start Stop: 01/18/20 18:00 Last Admin: 01/19/20 06:19 Dose: 0.25 ml Midazolam HCl (Versed 1 Mg/Ml) Confirm Administered Dose 4 mg .ROUTE .STK-MED ONE Stop: 01/19/20 07:49 Miscellaneous Medication (Phenylephrine 1 Mg/10 Ml-Ns) Confirm Administered Dose 1 mg IV .STK-MED ONE Stop: 01/19/20 08:59 Ondansetron HCl (Zofran) 4 mg IVPUSH ONETIME PRN PRN Reason: Nausea/Vomiting Stop: 01/19/20 18:00 Propofol (Diprivan 20 Ml) Confirm Administered Dose 400 mg .ROUTE .STK-MED ONE Stop: 01/19/20 07:52 Propofol (Diprivan 20 Ml) Confirm Administered Dose 200 mg .ROUTE .STK-MED ONE Stop: 01/19/20 08:41 Propofol (Diprivan 20 Ml) Confirm Administered Dose 200 mg .ROUTE .STK-MED ONE Stop: 01/19/20 09:14 Sodium Chloride (Saline Flush) 10 ml FLUSH ASDIRECTED PRN PRN Reason: Keep Vein Open Stop: 01/19/20 18:00
== END 2020-01-20 19:56 | disposition home or self-care (01) | DRG 743 ==
LOC: JD.SDS 08:32 → JD.OB 08:41 → JD.MS 11:30 → JD.SDS 01-20 08:52 → JD.MS 01-20 08:52
PROVIDERS: ADMIT Obstetrics & Gynecology; ATTEND Obstetrics & Gynecology
PROC: 0UB90ZZ Excision of Uterus, Open Approach (ICD-10-PCS; principal; 2020-01-20)
DX: D25.9 Leiomyoma of uterus, unspecified (principal); Z90.49 Acquired absence of other specified parts of digestive tract; Z88.2 Allergy status to sulfonamides
CPT/HCPCS: 00840; 36415; 80048; 81025; 85025; 86850; 86900; 86901; A9270-GY; C1765; J0690; J1170; J1885; J2001; J2250; J2370; J2405; J2704; J3010; J3490; J7030; J7120; J7121